=== PATIENT | male | born 1950 | race African-American/Black ===

== ENCOUNTER 2016-07-07 06:59 | Emergency (ER) | payer MEDICARE, BC ==
[2016-07-07 08:09] LABS: BASOPHILS 0.2 % (0.0-2.0); EOSINOPHILS 1.2 % (0-7); HEMATOCRIT 33.8 % (42.0-54.0); HEMOGLOBIN 10.3 g/dL (13.5-17.5); IMMATURE GRANULOCYTES 0.4 % (0-5); LYMPHOCYTES 33.1 % (15-50); MCH 20.7 pg (26.0-34.0); MCHC 30.5 g/dL (31.0-37.0); MONOCYTES 9.1 % (2-11); PLATELET COUNT 61 10x3/uL (130-400); RBC 4.97 10x6/uL (4.20-6.10); RDW 18.7 % (11.5-14.5)
[2016-07-07 08:30] LABS: APPEARANCE CLEAR (CLEAR); COLOR YELLOW (YELLOW); GLUCOSE 1000 mg/dL (NEGATIVE); LEUKOCYTE ESTERASE NEGATIVE (NEGATIVE); NITRITE NEGATIVE (NEGATIVE); PROTEIN 2+ mg/dL (NEGATIVE); SPECIFIC GRAVITY 1.015 (1.005-1.020)
[2016-07-07 08:31] LABS: BACTERIA FEW /hpf (NONE SEEN); BILIRUBIN NEGATIVE (NEGATIVE); EPITHELIAL CELLS NSEEN /hpf (0-5); KETONE NEGATIVE (NEGATIVE); RED CELLS - URINE OCC /hpf (0-5); UROBILINOGEN NORMAL (NORMAL); WHITE CELLS - URINE NSEEN /hpf (0-5)
[2016-07-07 08:32] LABS: ALBUMIN 3.6 g/dL (3.4-5.0); ANION GAP 10.4 mmol/L (8-16); BILIRUBIN - TOTAL 0.72 mg/dL (0.2-1.3); CALCIUM 8.7 mg/dL (8.5-10.1); CARBON DIOXIDE 31.3 mmol/L (21.0-32.0); CREATININE - SERUM 1.8 mg/dL (0.6-1.3); POTASSIUM - SERUM 3.7 mmol/L (3.5-5.1); PROTEIN - SERUM 6.1 g/dL (6.4-8.2); THYROID STIMULATING HORMONE 0.44 uIU/mL (0.36-3.74); TROPONIN-I 0.019 ng/mL (0.000-0.060)
== END 2016-07-07 09:40 | disposition home or self-care (01) ==
LOC: D.ER 06:59
PROVIDERS: Family Medicine
DX: I95.9 Hypotension, unspecified (principal); C91.10 Chronic lymphocytic leukemia of B-cell type not having achieved remission; E10.9 Type 1 diabetes mellitus without complications; Z79.4 Long term (current) use of insulin

== ENCOUNTER 2017-06-14 10:45 | Outpatient (CLI) | payer MEDICARE, BC ==
[~2017-06-14] VITALS: Ht 189.2 cm; Wt 95.5 kg
[2017-06-14 11:55] VITALS: Ht 189.2 cm; Wt 95.5 kg
== END 2017-06-14 18:50 | disposition home or self-care (01) ==
LOC: D.OPS 10:45
DX: D64.9 Anemia, unspecified (principal)

== ENCOUNTER 2017-06-23 08:44 | Outpatient (CLI) | payer MEDICARE, BC ==
[~2017-06-23] VITALS: Ht 189.2 cm; Wt 97.7 kg
[2017-06-23 10:26] VITALS: BP 125/75; Ht 189.2 cm; Wt 97.7 kg
== END 2017-06-23 16:15 | disposition home or self-care (01) ==
LOC: D.OPS 08:44
DX: C85.90 Non-Hodgkin lymphoma, unspecified, unspecified site (principal)

== ENCOUNTER 2017-06-23 15:54 | Emergency (ER) | payer MEDICARE, BC ==
[2017-06-23 10:26] VITALS: BMI 27.3
== END 2017-06-23 18:30 | disposition left against medical advice (07) ==
LOC: D.ER 15:54
DX: R05 Cough (principal); Z85.6 Personal history of leukemia; I10 Essential (primary) hypertension